=== PATIENT | male | born 1960 | race Caucasian/White ===

== ENCOUNTER 2017-08-21 19:24 | Emergency (ER) | payer OTHER ==
[2017-08-21 21:12] VITALS: BP 111/65
== END 2017-08-21 21:12 | disposition home or self-care (01) ==
LOC: ED 19:24
DX: S09.90XA Unspecified injury of head, initial encounter (principal); G40.909 Epilepsy, unspecified, not intractable, without status epilepticus; Z79.899 Other long term (current) drug therapy; W18.2XXA Fall in (into) shower or empty bathtub, initial encounter; Y93.89 Activity, other specified; Y99.8 Other external cause status; Y92.59 Other trade areas as the place of occurrence of the external cause

== ENCOUNTER 2017-11-23 19:40 | Inpatient (IN) | payer OTHER, MEDICAID ==
[~2017-11-23] VITALS: Ht 175.3 cm; Wt 78.2 kg
[2017-11-23 21:36] LABS: microscopic required? NO
[2017-11-23 21:48] LABS: BASOPHIL % 0.5 % (0-2); PLATELET COUNT 247 x10^3mcL (130-400)
[2017-11-23 21:52] LABS: UA SPECIFIC GRAVITY <=1.005 (1.005-1.035); urine erythrocyte NEGATIVE (NEGATIVE)
[2017-11-23 22:03] LABS: CALCIUM 8.8 mg/dL (8.5-10.1); CARBON DIOXIDE 32.5 mmol/L (21-32); CHLORIDE SERUM 101 mmol/L (98-107); CREATININE SERUM 0.7 mg/dL (0.7-1.3); GFR1 > 60 mL/min; GLUCOSE SERUM 126 mg/dL (74-106); POTASSIUM SERUM 4.1 mmol/L (3.5-5.1); SODIUM SERUM 140 mmol/L (136-145)
[2017-11-23 22:03] LABS: AMPHETAMINE QUAL UR NONE DETECTED (NEG <=1000)
[2017-11-23 22:17] LABS: ALKALINE PHOSPHATASE 130 U/L (46-116); ALT/SGPT 19 U/L (16-63); AST/SGOT 10 U/L (15-37); BILIRUBIN TOTAL 0.1 mg/dL (0.20-1.00); TOTAL PROTEIN, SERUM 7.5 g/dL (6.4-8.2)
[2017-11-23 22:18] LABS: ALBUMIN 3.3 g/dL (3.4-5.0)
[2017-11-23] MEDS ORDERED: VERAMYST27.5 MCG/1 (23:48)
[2017-11-23] MEDS ORDERED: AVODART0.5 M1 PO (23:48)
[2017-11-23] MEDS ORDERED: KEPPRA500 MG PO (23:48)
[2017-11-23] MEDS ORDERED: DITROPAN XL10 MG PO (23:49)
[2017-11-23] MEDS ORDERED: PHE20L PO (23:49)
[2017-11-23] MEDS ORDERED: LORAZEPAM0.5 MG PO (23:49)
[2017-11-23] MEDS ORDERED: FLOMAX0.4 MG PO (23:50)
[2017-11-24 01:31] VITALS: BP 125/45
[2017-11-24 02:03] LABS: T3 TOTAL 1.1 ng/mL
[2017-11-24 02:15] LABS: FREE T4 0.86 ng/dL (0.76-1.46); FREE THYROXINE INDEX 2.1 ug/dL (1.4-4.5); T4(THYROXINE) 6.1 ug/dL (4.7-13.3)
[2017-11-24 02:21] LABS: CHOLESTEROL/HDL RATIO 3.2; PHOSPHOROUS 3.7 mg/dL (2.5-4.9)
[2017-11-24 05:35] VITALS: BP 109/70
[2017-11-24 06:22] LABS: BASOPHIL % 0.5 % (0-2); PLATELET COUNT 263 x10^3mcL (130-400)
[2017-11-24 06:30] LABS: RED CELL DISTRIBUTION WIDTH 14.8 % (11.5-14.5)
[2017-11-24 07:03] LABS: CALCIUM 8.9 mg/dL (8.5-10.1); CARBON DIOXIDE 28.8 mmol/L (21-32); CHLORIDE SERUM 104 mmol/L (98-107); CREATININE SERUM 0.6 mg/dL (0.7-1.3); GFR1 > 60 mL/min; GLUCOSE SERUM 116 mg/dL (74-106); MAGNESIUM 1.9 mg/dL (1.8-2.4); PHOSPHOROUS 3.8 mg/dL (2.5-4.9); POTASSIUM SERUM 4.3 mmol/L (3.5-5.1); SODIUM SERUM 143 mmol/L (136-145); TRIGLYCERIDES 146 mg/dL (<150)
[2017-11-24 09:55] VITALS: BP 124/71
[2017-11-24 15:26] VITALS: BP 116/57
[2017-11-24 18:21] VITALS: BP 120/60
[2017-11-24 20:52] VITALS: BP 110/52
[2017-11-25 05:45] VITALS: BP 113/55
[2017-11-25 07:49] LABS: CALCIUM 8.4 mg/dL (8.5-10.1); CARBON DIOXIDE 26.6 mmol/L (21-32); CHLORIDE SERUM 106 mmol/L (98-107); CREATININE SERUM 0.6 mg/dL (0.7-1.3); GFR1 > 60 mL/min; GLUCOSE SERUM 124 mg/dL (74-106); POTASSIUM SERUM 4.8 mmol/L (3.5-5.1); SODIUM SERUM 139 mmol/L (136-145)
[2017-11-25 08:33] LABS: BASOPHIL % 0.4 % (0-2); PLATELET COUNT 241 x10^3mcL (130-400)
[2017-11-25 08:35] LABS: RED CELL DISTRIBUTION WIDTH 14.7 % (11.5-14.5)
[2017-11-25 09:37] VITALS: BP 113/55
[2017-11-25 10:36] VITALS: BP 110/55
[2017-11-25] MEDS ORDERED: DEPAKOTE500 MG PO (10:52)
== END 2017-11-25 11:56 | DRG 101 ==
LOC: ED 19:40 → DU 23:50 → MU 11-24 17:28
PROVIDERS: Emergency Medicine; Family Medicine
DX: G40.909 Epilepsy, unspecified, not intractable, without status epilepticus (principal); E44.1 Mild protein-calorie malnutrition; E11.65 Type 2 diabetes mellitus with hyperglycemia; E11.51 Type 2 diabetes mellitus with diabetic peripheral angiopathy without gangrene; N40.1 Benign prostatic hyperplasia with lower urinary tract symptoms; N32.81 Overactive bladder; D64.9 Anemia, unspecified; E78.1 Pure hyperglyceridemia; F70 Mild intellectual disabilities; F03.90 Unspecified dementia, unspecified severity, without behavioral disturbance, psychotic disturbance, mood disturbance, and anxiety; F41.8 Other specified anxiety disorders; F32.9 Major depressive disorder, single episode, unspecified; F17.210 Nicotine dependence, cigarettes, uncomplicated; Z68.25 Body mass index [BMI] 25.0-25.9, adult; Z66 Do not resuscitate
CPT/HCPCS: 83880; 84439; G0480; J2060; J7030; Q0092; Q9967

== ENCOUNTER 2017-12-01 11:03 | Emergency (ER) | payer OTHER, MEDICAID ==
[~2017-12-01] VITALS: Ht 180.3 cm; Wt 77.6 kg
[~2017-12-01 11:03] MED LIST: AVODART0.5 M1 PO; DEPAKOTE500 MG PO; DITROPAN XL10 MG PO; FLOMAX0.4 MG PO; KEPPRA500 MG PO; LORAZEPAM0.5 MG PO; PHE20L PO; VERAMYST27.5 MCG/1
[2017-12-01 11:10] VITALS: Ht 180.3 cm; Wt 77.6 kg
[2017-12-01 12:20] LABS: BASOPHIL % 0.3 % (0-2); CALCIUM 8.8 mg/dL (8.5-10.1); CARBON DIOXIDE 26.2 mmol/L (21-32); CHLORIDE SERUM 102 mmol/L (98-107); CREATININE SERUM 0.7 mg/dL (0.7-1.3); GFR1 > 60 mL/min; GLUCOSE SERUM 176 mg/dL (74-106); PLATELET COUNT 242 x10^3mcL (130-400); SODIUM SERUM 139 mmol/L (136-145)
[2017-12-01 12:24] LABS: ALKALINE PHOSPHATASE 126 U/L (46-116); ALT/SGPT 16 U/L (16-63); AST/SGOT 10 U/L (15-37); BILIRUBIN TOTAL 0.24 mg/dL (0.20-1.00); LIPASE 82 IU/L (73-393); TOTAL PROTEIN, SERUM 7.4 g/dL (6.4-8.2)
[2017-12-01 12:25] LABS: ALBUMIN 3.3 g/dL (3.4-5.0)
[2017-12-01 12:28] LABS: RED CELL DISTRIBUTION WIDTH 14.7 % (11.5-14.5)
[2017-12-01 16:13] VITALS: BP 135/70
== END 2017-12-01 16:13 | disposition home or self-care (01) ==
LOC: ED 11:03
PROVIDERS: Emergency Medicine
DX: G93.40 Encephalopathy, unspecified (principal)
CPT/HCPCS: 36415; 87804; Q0092

== ENCOUNTER 2017-12-04 09:47 | Inpatient (IN) | payer OTHER, MEDICAID ==
[~2017-12-04] VITALS: Ht 180.3 cm; Wt 74.0 kg
[2017-12-04] MEDS ORDERED: TAMSULOSIN HYD0.4 M1 PO (11:19)
[2017-12-04] MEDS ORDERED: PHENOBARBITAL32.4 MG PO (11:19)
[2017-12-04] MEDS ORDERED: DITROPAN XL10 MG PO (11:19)
[2017-12-04] MEDS ORDERED: EFFEXOR XR150 MG PO (11:20)
[2017-12-04] MEDS ORDERED: DEPAKOTE ER500 MG PO (11:20)
[2017-12-04] MEDS ORDERED: AVODART0.5 M1 PO (11:21)
[2017-12-04] MEDS ORDERED: METFORMIN HYDR500 M1 PO (11:21)
[2017-12-04] MEDS ORDERED: KEPPRA500 MG PO (11:22)
[2017-12-04] MEDS ORDERED: VERAMYST27.5 MCG/1 (11:22)
[2017-12-04] MEDS ORDERED: MAGOX 400241.3 MG PO (11:23)
[2017-12-04] MEDS ORDERED: LORAZEPAM0.5 MG PO (11:23)
[2017-12-04 12:23] LABS: CALCIUM 8.5 mg/dL (8.5-10.1); CARBON DIOXIDE 25.4 mmol/L (21-32); CHLORIDE SERUM 106 mmol/L (98-107); CREATININE SERUM 0.5 mg/dL (0.7-1.3); GFR1 > 60 mL/min; GLUCOSE SERUM 123 mg/dL (74-106); SODIUM SERUM 140 mmol/L (136-145)
[2017-12-04 12:27] LABS: ALBUMIN 3.3 g/dL (3.4-5.0); ALKALINE PHOSPHATASE 118 U/L (46-116); ALT/SGPT 15 U/L (16-63); AST/SGOT 19 U/L (15-37); BILIRUBIN TOTAL 0.24 mg/dL (0.20-1.00); TOTAL PROTEIN, SERUM 7.5 g/dL (6.4-8.2)
[2017-12-04 13:53] VITALS: BP 143/67
[2017-12-04 18:00] VITALS: BP 108/61
[2017-12-04 19:00] LABS: BASOPHIL % 0.4 % (0-2); PLATELET COUNT 251 x10^3mcL (130-400)
[2017-12-04 19:18] LABS: CHOLESTEROL/HDL RATIO 2.6
[2017-12-04 19:25] LABS: FREE T4 0.95 ng/dL (0.76-1.46); FREE THYROXINE INDEX 2.5 ug/dL (1.4-4.5)
[2017-12-04 19:43] LABS: T3 TOTAL 0.91 ng/mL
[2017-12-04 21:07] VITALS: BP 153/64
[2017-12-05 05:08] VITALS: BP 117/59
[2017-12-05 07:32] LABS: BASOPHIL % 0.2 % (0-2); PLATELET COUNT 232 x10^3mcL (130-400); RED CELL DISTRIBUTION WIDTH 15.3 % (11.5-14.5)
[2017-12-05 07:47] LABS: CALCIUM 8.9 mg/dL (8.5-10.1); CARBON DIOXIDE 28.3 mmol/L (21-32); CHLORIDE SERUM 104 mmol/L (98-107); CREATININE SERUM 0.7 mg/dL (0.7-1.3); GFR1 > 60 mL/min; GLUCOSE SERUM 109 mg/dL (74-106); MAGNESIUM 2.1 mg/dL (1.8-2.4); PHOSPHOROUS 3.9 mg/dL (2.5-4.9); POTASSIUM SERUM 4.2 mmol/L (3.5-5.1); SODIUM SERUM 139 mmol/L (136-145)
[2017-12-05 09:05] VITALS: BP 120/58
[2017-12-05 12:16] VITALS: BP 125/58
[2017-12-05 16:09] VITALS: BP 128/61
[2017-12-05 19:06] LABS: microscopic required? NO
[2017-12-05 19:31] LABS: UA SPECIFIC GRAVITY 1.015 (1.005-1.035); urine erythrocyte NEGATIVE (NEGATIVE)
[2017-12-05 19:44] LABS: AMPHETAMINE QUAL UR NONE DETECTED (NEG <=1000)
[2017-12-05 21:18] VITALS: BP 126/62
[2017-12-06 02:09] VITALS: BP 113/61
[2017-12-06 05:27] VITALS: BP 105/50
[2017-12-06 08:00] LABS: CALCIUM 8.9 mg/dL (8.5-10.1); CARBON DIOXIDE 27.3 mmol/L (21-32); CHLORIDE SERUM 101 mmol/L (98-107); CREATININE SERUM 0.6 mg/dL (0.7-1.3); GFR1 > 60 mL/min; GLUCOSE SERUM 120 mg/dL (74-106); MAGNESIUM 2.2 mg/dL (1.8-2.4); PHOSPHOROUS 3.8 mg/dL (2.5-4.9); PLATELET COUNT 232 x10^3mcL (130-400); POTASSIUM SERUM 3.9 mmol/L (3.5-5.1); RED CELL DISTRIBUTION WIDTH 14.8 % (11.5-14.5); SODIUM SERUM 139 mmol/L (136-145)
[2017-12-06 08:01] LABS: BASOPHIL % 0.2 % (0-2)
[2017-12-06 09:07] VITALS: BP 139/63
[2017-12-06 17:39] VITALS: BP 130/67
[2017-12-06 20:57] VITALS: BP 112/52
[2017-12-07 06:11] VITALS: BP 96/48
[2017-12-07 07:19] LABS: BASOPHIL % 1.6 % (0-2); PLATELET COUNT 218 x10^3mcL (130-400); RED CELL DISTRIBUTION WIDTH 13.8 % (11.5-14.5)
[2017-12-07 07:36] LABS: CALCIUM 8.5 mg/dL (8.5-10.1); CARBON DIOXIDE 25.8 mmol/L (21-32); CHLORIDE SERUM 105 mmol/L (98-107); CREATININE SERUM 0.5 mg/dL (0.7-1.3); GFR1 > 60 mL/min; GLUCOSE SERUM 120 mg/dL (74-106); MAGNESIUM 1.9 mg/dL (1.8-2.4); PHOSPHOROUS 3.7 mg/dL (2.5-4.9); POTASSIUM SERUM 3.6 mmol/L (3.5-5.1); SODIUM SERUM 141 mmol/L (136-145)
[2017-12-07 08:00] VITALS: BP 126/62
[2017-12-07 08:30] VITALS: BP 130/58
[2017-12-07 09:49] VITALS: BP 135/60
[2017-12-07 11:51] VITALS: BP 135/60
[2017-12-07 13:07] VITALS: BP 134/64
== END 2017-12-07 15:23 | DRG 91 ==
LOC: ED 09:47 → DU 12:43
PROVIDERS: Emergency Medicine; Family Medicine
DX: G92 Toxic encephalopathy (principal); N17.0 Acute kidney failure with tubular necrosis; E44.1 Mild protein-calorie malnutrition; T42.3X5A Adverse effect of barbiturates, initial encounter; K21.9 Gastro-esophageal reflux disease without esophagitis; E11.65 Type 2 diabetes mellitus with hyperglycemia; E11.51 Type 2 diabetes mellitus with diabetic peripheral angiopathy without gangrene; I10 Essential (primary) hypertension; G40.909 Epilepsy, unspecified, not intractable, without status epilepticus; N40.0 Benign prostatic hyperplasia without lower urinary tract symptoms; N32.81 Overactive bladder; F70 Mild intellectual disabilities; F41.9 Anxiety disorder, unspecified; F32.9 Major depressive disorder, single episode, unspecified; F17.210 Nicotine dependence, cigarettes, uncomplicated; Z66 Do not resuscitate; Z79.84 Long term (current) use of oral hypoglycemic drugs; Z68.22 Body mass index [BMI] 22.0-22.9, adult; Y92.099 Unspecified place in other non-institutional residence as the place of occurrence of the external cause
CPT/HCPCS: 36600; 83880; 84439; 97116-GP; 97530-GP; G0480; J3490; J7030; Q0092

== ENCOUNTER 2017-12-11 19:54 | Inpatient (IN) | payer OTHER, MEDICAID ==
[~2017-12-11] VITALS: Ht 180.3 cm; Wt 88.0 kg
[~2017-12-11 19:54] MED LIST changes: +DEPAKOTE ER500 MG PO; +EFFEXOR XR150 MG PO; +MAGOX 400241.3 MG PO; +METFORMIN HYDR500 M1 PO; +PHENOBARBITAL32.4 MG PO; +TAMSULOSIN HYD0.4 M1 PO
[2017-12-11 20:14] VITALS: Ht 180.3 cm; Wt 88.0 kg
[2017-12-11 22:31] LABS: CALCIUM 9.1 mg/dL (8.5-10.1); CARBON DIOXIDE 30.1 mmol/L (21-32); CHLORIDE SERUM 103 mmol/L (98-107); CREATININE SERUM 0.7 mg/dL (0.7-1.3); GFR1 > 60 mL/min; GLUCOSE SERUM 149 mg/dL (74-106); SODIUM SERUM 143 mmol/L (136-145)
[2017-12-11 22:49] LABS: ALBUMIN 3.7 g/dL (3.4-5.0); ALKALINE PHOSPHATASE 93 U/L (46-116); ALT/SGPT 20 U/L (16-63); AST/SGOT 17 U/L (15-37); BILIRUBIN TOTAL 0.2 mg/dL (0.20-1.00)
[2017-12-11 23:29] LABS: BASOPHIL % 0.3 % (0-2); PLATELET COUNT 250 x10^3mcL (130-400); RED CELL DISTRIBUTION WIDTH 15.4 % (11.5-14.5)
[2017-12-12 04:14] LABS: MAGNESIUM 2.1 mg/dL (1.8-2.4); PHOSPHOROUS 3.3 mg/dL (2.5-4.9)
[2017-12-12 09:27] VITALS: BP 155/72
[2017-12-12 13:05] VITALS: BP 106/73; BP 132/78
[2017-12-12 13:53] VITALS: BP 155/72
[2017-12-12 17:05] VITALS: BP 120/49
[2017-12-12 21:33] VITALS: BP 111/57
[2017-12-12 22:46] LABS: microscopic required? NO
[2017-12-12 22:53] LABS: UA SPECIFIC GRAVITY 1.015 (1.005-1.035); urine erythrocyte NEGATIVE (NEGATIVE)
[2017-12-12 23:00] LABS: AMPHETAMINE QUAL UR NONE DETECTED (NEG <=1000)
[2017-12-13 06:44] VITALS: BP 136/69
[2017-12-13 07:17] LABS: CALCIUM 8.3 mg/dL (8.5-10.1); CARBON DIOXIDE 27.3 mmol/L (21-32); CHLORIDE SERUM 104 mmol/L (98-107); CREATININE SERUM 0.7 mg/dL (0.7-1.3); GFR1 > 60 mL/min; GLUCOSE SERUM 116 mg/dL (74-106); POTASSIUM SERUM 4.2 mmol/L (3.5-5.1); SODIUM SERUM 142 mmol/L (136-145)
[2017-12-13 07:26] LABS: CHOLESTEROL/HDL RATIO 2.5
[2017-12-13 07:51] LABS: BASOPHIL % 0.3 % (0-2); PLATELET COUNT 224 x10^3mcL (130-400); RED CELL DISTRIBUTION WIDTH 15.1 % (11.5-14.5)
[2017-12-13 08:40] VITALS: BP 116/72
[2017-12-13 13:20] VITALS: BP 119/60
[2017-12-13 17:24] VITALS: BP 115/59
[2017-12-13 21:53] VITALS: BP 140/56
[2017-12-14 06:00] VITALS: BP 116/56
[2017-12-14 07:02] LABS: CALCIUM 8.8 mg/dL (8.5-10.1); CARBON DIOXIDE 27.6 mmol/L (21-32); CHLORIDE SERUM 104 mmol/L (98-107); CREATININE SERUM 0.6 mg/dL (0.7-1.3); GFR1 > 60 mL/min; GLUCOSE SERUM 129 mg/dL (74-106); POTASSIUM SERUM 3.8 mmol/L (3.5-5.1); SODIUM SERUM 140 mmol/L (136-145)
[2017-12-14 07:48] LABS: BASOPHIL % 0.3 % (0-2); PLATELET COUNT 221 x10^3mcL (130-400)
[2017-12-14 10:09] VITALS: BP 125/62
[2017-12-14 14:12] VITALS: BP 132/50; BP 182/73
[2017-12-14 17:48] VITALS: BP 122/59
[2017-12-14 21:48] VITALS: BP 145/63
[2017-12-15 05:58] VITALS: BP 120/63
[2017-12-15 06:23] LABS: BASOPHIL % 0.4 % (0-2); PLATELET COUNT 231 x10^3mcL (130-400)
[2017-12-15 06:32] LABS: CALCIUM 8.6 mg/dL (8.5-10.1); CARBON DIOXIDE 28.9 mmol/L (21-32); CHLORIDE SERUM 106 mmol/L (98-107); CREATININE SERUM 0.6 mg/dL (0.7-1.3); GFR1 > 60 mL/min; GLUCOSE SERUM 115 mg/dL (74-106); SODIUM SERUM 142 mmol/L (136-145)
[2017-12-15 06:50] LABS: RED CELL DISTRIBUTION WIDTH 15.1 % (11.5-14.5)
[2017-12-15 09:38] VITALS: BP 142/51
[2017-12-15 12:55] VITALS: BP 127/63
[2017-12-15] MEDS ORDERED: LAC30L PO (13:05)
[2017-12-15] MEDS ORDERED: BAY PO ×2 (13:06→17:04)
[2017-12-15] MEDS ORDERED: KEP500 PO ×2 (13:07→13:37)
[2017-12-15] MEDS ORDERED: PHENOBARBITAL97.2 MG PO ×2 (13:10→17:04)
[2017-12-15 13:33] VITALS: BP 127/63
[2017-12-15 14:46] VITALS: BP 127/63
[2017-12-15 14:47] VITALS: BP 127/63
[2017-12-15] MEDS ORDERED: LACTULOSE10 GM/152 PO (17:04)
[2017-12-15] MEDS ORDERED: KEPPRA500 MG PO (17:04)
== END 2017-12-15 15:30 | DRG 917 ==
LOC: ED 19:54 → DU 12-12 02:28 → MU 12-15 10:39
PROVIDERS: Emergency Medicine; Family Medicine; Student in an Organized Health Care Education/Training Program
PROC: 0HQ0XZZ Repair Scalp Skin, External Approach (ICD-10-PCS; principal; 2017-12-12)
DX: T42.3X1A Poisoning by barbiturates, accidental (unintentional), initial encounter (principal); G92 Toxic encephalopathy; E44.1 Mild protein-calorie malnutrition; S01.01XA Laceration without foreign body of scalp, initial encounter; E11.51 Type 2 diabetes mellitus with diabetic peripheral angiopathy without gangrene; G40.909 Epilepsy, unspecified, not intractable, without status epilepticus; F41.8 Other specified anxiety disorders; E11.65 Type 2 diabetes mellitus with hyperglycemia; I10 Essential (primary) hypertension; N40.0 Benign prostatic hyperplasia without lower urinary tract symptoms; N32.81 Overactive bladder; F79 Unspecified intellectual disabilities; F32.9 Major depressive disorder, single episode, unspecified; F17.210 Nicotine dependence, cigarettes, uncomplicated; Z68.24 Body mass index [BMI] 24.0-24.9, adult; Z79.84 Long term (current) use of oral hypoglycemic drugs; Z66 Do not resuscitate; W01.0XXA Fall on same level from slipping, tripping and stumbling without subsequent striking against object, initial encounter; Y92.099 Unspecified place in other non-institutional residence as the place of occurrence of the external cause
CPT/HCPCS: 97110-GP; 97116-GP; 97530-GP; J7030; Q0092

== ENCOUNTER → 2018-08-01 | Outpatient (CLI) | payer OTHER, MEDICAID ==
[~2018-08-01] MED LIST changes: +BAY PO; +KEP500 PO; +LAC30L PO; +LACTULOSE10 GM/152 PO; +PHENOBARBITAL97.2 MG PO
== END | disposition home or self-care (01) ==
LOC: RD 11:33
DX: R63.4 Abnormal weight loss (principal)

== ENCOUNTER 2018-09-06 06:39 | Day surgery (SDC) | payer OTHER, MEDICAID ==
[~2018-09-06] VITALS: Ht 175.3 cm; Wt 68.0 kg
[2018-09-06 07:14] VITALS: BP 110/65
[2018-09-06 10:52] VITALS: BP 132/60
== END 2018-09-06 10:40 | disposition home or self-care (01) ==
LOC: DS 06:39 → GI 08:30 → OR 08:30 → DS 10:40
PROVIDERS: Internal Medicine
PROC: 0DB68ZX Excision of Stomach, Via Natural or Artificial Opening Endoscopic, Diagnostic (ICD-10-PCS; 2018-09-06)
PROC: 0D5P8ZZ Destruction of Rectum, Via Natural or Artificial Opening Endoscopic (ICD-10-PCS; principal; 2018-09-06 08:30)
PROC: 0DB98ZX Excision of Duodenum, Via Natural or Artificial Opening Endoscopic, Diagnostic (ICD-10-PCS; 2018-09-06 08:30)
DX: K29.60 Other gastritis without bleeding (principal); R63.4 Abnormal weight loss; E11.9 Type 2 diabetes mellitus without complications; G40.909 Epilepsy, unspecified, not intractable, without status epilepticus; F79 Unspecified intellectual disabilities; F41.9 Anxiety disorder, unspecified; K62.1 Rectal polyp; Z68.22 Body mass index [BMI] 22.0-22.9, adult; Z79.84 Long term (current) use of oral hypoglycemic drugs
CPT/HCPCS: 43235; 45378; J1200; J1610; J2250; J2310; J3010; J3490